=== PATIENT | male | born 1995 | race Caucasian/White ===

== ENCOUNTER 2024-09-03 22:53 | Emergency (ER) | payer OTHER, SELFPAY ==
[2024-09-03 22:58] VITALS: BP 152/82; PULSE 77; TEMP 36.6; O2SAT 100; BMI 21.7
--- NOTE | 2024-09-03 23:10 | ED_ITS ---
HPI - Dental/Oral General Chief complaint: Dental/Oral Stated complaint: TOOTH PAIN Time Seen by Provider: 09/03/24 23:02 Source: patient Mode of arrival: walk-in Limitations: no limitations History of Present Illness HPI Narrative: 29-year-old male presents to the emergency department for pain to his right lower jaw, specifically tooth #32. He has a dentist. He has been taking ibuprofen at home and it is throbbing and the pain is severe and continuous. No fever or difficulty breathing or swallowing. Related Data Previous Rx's ?Medication ?Instructions ?Recorded acetaminophen 300 mg-codeine 30 mg 1 tab PO Q6H PRN pain 5 days #20 09/03/24 tablet tabs penicillin V potassium 250 mg 250 mg PO QID 10 days #40 tabs 09/03/24 tablet Allergies Allergy/AdvReac Type Severity Reaction Status Date / Time No Known Drug Allergies Allergy Verified 09/03/24 23:05 Review of Systems ROS Narrative A ten point review of systems is negative except as noted above. PFSH PFSH Social History Little interest or pleasure in doing things: not at all Feeling down, depressed, or hopeless: not at all Exam Narrative Exam Narrative: Nurses note and vital signs reviewed and patient is not hypoxic. General: The patient appears well and in no apparent distress. Patient is resting comfortably on cart. Skin: Warm, dry, no pallor noted. There is no rash noted. Head: Normocephalic, atraumatic Eye: Normal conjunctiva, no drainage Ears, Nose, Mouth, and Throat: oral mucosa is moist. Nares patent. No facial swelling or erythema. No swelling to the floor of his mouth. He is handling his oral secretions well. He has some gingival inflammation and partially visible tooth #32. No bleeding or pus present Cardiovascular: Regular Rate and Rhythm Respiratory: Patient is in no distress, no accessory muscle use Back: non-tender GI: Soft and nontender Musculoskeletal: The patient has no evidence of calf tenderness, no pitting edema, symmetrical pulses noted bilaterally Neurological: A&O, normal speech Psychiatric: Cooperative Constitutional Vital Signs, click to edit/add: Last Vital Signs Temp 97.9 F 09/03/24 22:58 Pulse 77 09/03/24 22:58 Resp 16 09/03/24 22:58 BP 152/82 H 09/03/24 22:58 Pulse Ox 100 09/03/24 22:58 O2 Del Method Room Air 09/03/24 22:58 Course Vital Signs Vital signs: Vital Signs Temperature 97.9 F 09/03/24 22:58 Pulse Rate 77 09/03/24 22:58 Respiratory Rate 16 09/03/24 22:58 Blood Pressure 152/82 H 09/03/24 22:58 Pulse Oximetry 100 09/03/24 22:58 Oxygen Delivery Method Room Air 09/03/24 22:58 Temperature 97.9 F 09/03/24 22:58 Pulse Rate 77 09/03/24 22:58 Respiratory Rate 16 09/03/24 22:58 Blood Pressure 152/82 H 09/03/24 22:58 Pulse Oximetry 100 09/03/24 22:58 Oxygen Delivery Method Room Air 09/03/24 22:58 MDM - Dental/Oral MDM Narrative Medical decision making narrative: He was given IM Toradol and oral penicillin here and prescribed Tylenol 3 and penicillin. Treatment diagnosis and follow-up were discussed with the patient. Differential Diagnosis Differential diagnosis: Likely gingival abscess, dental caries, toothache and dental abscess Discharge Plan Discharge Chief Complaint: Dental/Oral Clinical Impression: Toothache Patient Disposition: Home, Self-Care Time of Disposition Decision: 23:09 Condition: Good Mode of Transportation: Private Vehicle Prescriptions / Home Meds: New acetaminophen-codeine 300-30 mg tablet 1 tab PO Q6H PRN (Reason: pain) 5 Days Qty: 20 0RF penicillin V potassium 250 mg tablet 250 mg PO QID 10 Days Qty: 40 0RF Print Language: [place] Instructions: Toothache (ED) Additional Instructions: Follow-up with your dentist. Referrals: KASEY POWERS [Primary Care Provider] - 1 week
[2024-09-03] MEDS: PENICILLIN V POTASSIUM 250 MG TABLET 500 MG PO (23:53)
[2024-09-03] MEDS: KETOROLAC TROMETHAMINE 60 MG/2 ML VIAL IM (23:53)
== END 2024-09-04 00:02 | disposition home or self-care (01) ==
PROVIDERS: Emergency Provider Emergency Medicine; PCP Family Medicine
DX: K08.89 Other specified disorders of teeth and supporting structures (principal)
CPT/HCPCS: 96372; 99284; J1885